=== PATIENT | female | born 1990 | race Native Hawaiian/Other Pacific Islander ===

== ENCOUNTER 2022-08-31 11:50 | Emergency (ER) | payer BC, OTHER | END 2022-08-31 13:01 | disposition left against medical advice (07) | LOC: ED 11:50 | DX: Z53.21 Procedure and treatment not carried out due to patient leaving prior to being seen by health care provider (principal) | CPT/HCPCS: 99281 ==

== ENCOUNTER 2022-12-26 10:52 | Emergency (ER) | payer OTHER ==
--- NOTE | 2022-12-26 11:51 | ERPHSYRPT ---
- History of Present Illness Time Seen by Provider: 12/26/22 11:32 Source: patient Exam Limitations: no limitations Patient Subjective Stated Complaint: pt here because she is worried about her test results, she states 3 weeks ago she was seen and states her wbc count was elevated and has a fatty liver, she has an apt on wednesday , she co abd pain to left side of, able to eat and drink,denies problems with b/b Triage Nursing Assessment: pt alert, resp easy, walked in, face mask in place, emtional at times Physician History: pt here because she is worried about her test results, she states 3 weeks ago she was seen and states her wbc count was elevated and has a fatty liver, she has an apt on wednesday , she co abd pain to left side of, able to eat and drink,denies problems with b/b Patient is 32-year-old female came to the emergency room with complaining of some epigastric pain which has been going on for last 4 to 6 weeks. Patient has underwent multiple blood test through multiple ER visit as well as multiple office visits. Patient and her came to the ER to find out the answers and find out what was her white blood cell count. She just got 1 complete blood count yesterday in doctor's office but she could not get the results. Allergies/Adverse Reactions: No Known Drug Allergies Allergy (Unverified 12/26/22 11:22) Home Medications: Dextroamphetamine/Amphetamine [Adderall 7.5 mg Tablet] 7.5 mg PO DAILY 12/26/22 [History] Hydrocodone/Acetaminophen [Hydrocodone-Acetamin 7.5-325] 1 each PO DAILY 12/26/22 [History] Hx Tetanus, Diphtheria Vaccination/Date Given: No Hx Influenza Vaccination/Date Given: No Hx Pneumococcal Vaccination/Date Given: No Immunizations Up to Date: Yes Travel Risk - International Travel Have you traveled outside of the country in past 3 weeks: No - Coronavirus Screening Are you exhibiting any of the following symptoms?: No Close contact with a COVID-19 positive Pt in past 14-21 Days: No - Vaccine Status Have you recieved a Covid-19 vaccination: Yes 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[employer] - Vaccination Dates Date of 2cond Vaccination (if applicable): 2020 - Review of Systems Constitutional: No Symptoms Eyes: No Symptoms Ears, Nose, & Throat: No Symptoms Respiratory: No Symptoms Cardiac: No Symptoms Abdominal/Gastrointestinal: Abdominal Pain (epigastric) Genitourinary Symptoms: No Symptoms Musculoskeletal: No Symptoms - Social History Smoking Status: Current every day smoker Exposure to second hand smoke: Yes Patient Lives Alone: No Significant Family History: heart disease, diabetes - Female History Hx Last Menstrual Period: november Hx Now: No - Nursing Vital Signs Nursing Vital Signs: Pain Scale Pain Intensity 7 - Physical Exam General Appearance: no apparent distress, alert Eye Exam: PERRL/EOMI, eyes nml inspection Ears, Nose, Throat Exam: normal ENT inspection, TMs normal, pharynx normal, moist mucous membranes Neck Exam: normal inspection, non-tender, supple, full range of motion Respiratory Exam: normal breath sounds, lungs clear, No respiratory distress Cardiovascular Exam: regular rate/rhythm, normal heart sounds, normal peripheral pulses Gastrointestinal/Abdomen Exam: soft, normal bowel sounds, No tenderness, No mass Back Exam: normal inspection, normal range of motion, No CVA tenderness, No vertebral tenderness Extremity Exam: normal inspection, normal range of motion, pelvis stable Neurologic Exam: alert, oriented x 3, cooperative, normal mood/affect, nml cerebellar function, nml station & gait, sensation nml, No motor deficits Skin Exam: normal color, warm, dry, No rash Lymphatic Exam: No adenopathy - Course Nursing assessment & vital signs reviewed: Yes - Progress Progress: unchanged Progress Note: 12/26/22 11:54 I explained at length patient's concern, educated her about elevated white blood cell count, advised her to follow-up with her primary care physician for further intervention if necessary. Patient and her significant other understood. They are all questions were answered. Counseled pt/family regarding: diagnosis, need for follow-up Medical Desision Making - Discussion of managment Reviewed:: Test results, Need for additional workup Agreed on:: Treatment plan, need for follow-up - Departure Departure Disposition: Home Clinical Impression: Epigastric abdominal pain Leukocytosis (leucocytosis) Qualifiers: Leukocytosis type: other Qualified Code(s): D72.828 - Other elevated white blood cell count Condition: Stable Critical Care Time: No Referrals: AGUEDA SAHU MD [Emergency Provider] - Follow up/PCP as directed Additional Instructions: Discharge/Care Plan EITAN SIMS was seen on 12/26/22 in the Emergency Room. The patient was counseled regarding Diagnosis,Lab results, Imaging studies, need for follow up and when to return to the Emergency Room. Prescriptions given: Discharge Note I have spoken with the patient and/or caregivers. I have explained the patient's condition, diagnosis and treatment plan based on the information available to me at this time. I have answered the patient's and/or caregiver's questions and addressed any concerns. The patient and/or caregivers have as good understanding of the patient's diagnosis, condition and treatment plan as can be expected at this point. The vital signs have been stable. The patient's condition is stable and appropriate for discharge from the emergency department. The patient will pursue further outpatient evaluation with the primary care rosanne santacruz or other designated or consulting physician as outlined in the discharge instructions. The patient and/or caregivers are agreeable to this plan of care and follow-up instructions have been explained in detail. The patient and/or caregivers have received these instruction. The patient/and or caregivers are aware that any significant change in condition or worsening of symptoms should prompt an immediate return to this or the closest emergency department or call 911. SOLISEITAN LINDSAY was seen on 12/26/22 n the Emergency Room. At that time you were treated for an emergent condition, during your visit Laboratory, Radiology and/or other procedures may have been ordered. It is very important that you follow-up with your Primary Care Physician AMBER HAMPTON within the next 24-48 hours to review your Emergency Room visit and the final results of testing that was ordered. Some test results such as Urine Cultures, Blood Cultures, and other cultures if ordered will not be finalized for 24-48 hours. If you do not have a Primary Care Provider please call the medical records department at [phone] ext [phone] to obtain a copy of your results or you may sign into our patient portal to obtain these results by visiting us @ [email or web address] and completing the following steps: 1. Click on the Patient Portal link 2. Click the Patient Self Enrollment Link to complete the enrollment form and entering your 3. Once the enrollment form is completed you will receive an email with a temporary ID and password at the email address you provided. 4. Next choose a user name and password. Your user name must be at least 4 characters long and your password must be at least 4 characters long. 5. Choose a security question from the list and provide your answer to the question. If you already have signed into the Health Portal you may access your Health Care Information 22/03 by the following steps: 1. Login to our website @ [email or web address] 2. Enter your original user name and password. FAQS The [facility] Health Portal is an online tool that contains your Lab Results, Radiology Reports, Visit History, Discharge Instructions and Health Summary Lab and Radiology Results will not be available for 72 hours on the portal. The Portal is a secure site, passwords are encryted and URLs are re-written so they cannot be copied and pasted. You and authorized family members are the only ones who can access your Portal. Also there is a timeout feature that protects your information if you leave the Portal page open. If you have technical difficulty please use the Contact Us link on the page this will allow you to submit any questions you have regarding the Portal or you may contact the Medical Record Department at [phone] ext [phone].
[2022-12-26 11:59] VITALS: BP 138/78; PULSE 88; O2SAT 98
== END 2022-12-26 12:06 | disposition home or self-care (01) ==
LOC: ED 10:52
DX: R10.13 Epigastric pain (principal); D72.828 Other elevated white blood cell count; Z79.891 Long term (current) use of opiate analgesic; Z79.899 Other long term (current) drug therapy; Z72.0 Tobacco use
CPT/HCPCS: 99281

== ENCOUNTER 2023-04-06 22:44 | Emergency (ER) | payer BC, OTHER ==
[2023-04-06 23:00] VITALS: TEMP 99.7
[2023-04-06] MEDS ORDERED: Sodium Chloride 0.9% 1000 ML 1,000 ML ONE (23:15)
[2023-04-06] MEDS: Sodium Chloride 0.9% 1000 ML 1,000 ML IV STA (23:16)
[2023-04-06 23:25] LABS: HCG URINE TEST NEGATIVE (NEGATIVE)
[2023-04-06 23:36] LABS: Amphetamine,Urine NEGATIVE (NEGATIVE); Barbiturate,Urine NEGATIVE (NEGATIVE); Benzodiazepine,Urine NEGATIVE (NEGATIVE); Cocaine,Urine NEGATIVE (NEGATIVE); Methadone,Urine NEGATIVE (NEGATIVE); Opiate,Urine POSITIVE (NEGATIVE); PCP,Urine NEGATIVE (NEGATIVE); THC,Urine POSITIVE (NEGATIVE)
[2023-04-07 00:04] LABS: INFLUENZA A NEGATIVE (NEGATIVE); INFLUENZA B NEGATIVE (NEGATIVE); RESPIRATORY SYNCTIAL VIRUS NEGATIVE (NEGATIVE)
[2023-04-07 00:14] LABS: SARS-CoV-2 Xpert Express POSITIVE (NEGATIVE)
[2023-04-07 00:23] VITALS: O2SAT 98
--- NOTE | 2023-04-07 00:35 | ERPHSYRPT ---
- History of Present Illness Time Seen by Provider: 04/06/23 23:00 Source: patient Exam Limitations: no limitations Patient Subjective Stated Complaint: cough, intermittent fever, headache, body aches since wednesday Triage Nursing Assessment: pt ambulatory to bed by self, pt alert and oriented x3, skin pwd, pt c/o intermittent fever, nonproductive cough, body aches and intermittent headache since wednesday, pt afebrile currently, hx of asthma as a child Physician History: Patient 33-year-old female presents to the emergency department for evaluation of viral-like symptoms. Patient has been experiencing cough congestion body aches headache and subjective fever. Symptoms have been ongoing for approximately 3 days. No nausea or vomiting. No diarrhea. Patient currently afebrile. Symptoms are mild to moderate in intensity. No specific worsening or improving factors. Patient otherwise feels well. Patient denies sick contacts. Portions of this note were created with voice recognition technology. There may be grammatical, spelling, punctuation or sound alike errors Timing/Duration: day(s) (3 days), worse Modifying Factors: Improves With: nothing Associated Symptoms: denies symptoms Allergies/Adverse Reactions: No Known Drug Allergies Allergy (Verified 04/06/23 22:55) Home Medications: Dextroamphetamine/Amphetamine [Adderall 7.5 mg Tablet] 7.5 mg PO DAILY 12/26/22 [History] Hydrocodone/Acetaminophen [Hydrocodone-Acetamin 7.5-325] 1 each PO DAILY 12/26/22 [History] Hx Tetanus, Diphtheria Vaccination/Date Given: Yes Hx Influenza Vaccination/Date Given: (unk) Hx Pneumococcal Vaccination/Date Given: No Immunizations Up to Date: Yes Travel Risk - International Travel Have you traveled outside of the country in past 3 weeks: No - Coronavirus Screening Are you exhibiting any of the following symptoms?: No Close contact with a COVID-19 positive Pt in past 14-21 Days: No - Vaccine Status Have you recieved a Covid-19 vaccination: Yes 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 Dates Date of 2cond Vaccination (if applicable): n/a - Review of Systems Constitutional: No Symptoms, No Fever, No Chills Eyes: No Symptoms Ears, Nose, & Throat: No Symptoms Respiratory: No Symptoms, No Cough, No Dyspnea Cardiac: No Symptoms, No Chest Pain, No Edema, No Syncope Abdominal/Gastrointestinal: No Symptoms, No Abdominal Pain, No Nausea, No Vomiting, No Diarrhea Genitourinary Symptoms: No Symptoms, No Dysuria Musculoskeletal: No Symptoms, No Back Pain, No Neck Pain Skin: No Symptoms, No Rash Neurological: No Symptoms, No Dizziness, No Focal Weakness, No Sensory Changes Psychological: No Symptoms Endocrine: No Symptoms Hematologic/Lymphatic: No Symptoms Immunological/Allergic: No Symptoms All Other Systems: Reviewed and Negative - Past Medical History Pertinent Past Medical History: Yes Respiratory History: Asthma, Pneumonia Psycho-Social History: Attention Deficit Disorder Other Medical History: fatty liver - Past Surgical History Past Surgical History: No Female Surgical History: Section - Social History Smoking Status: Current every day smoker Exposure to second hand smoke: No Drug Use: none Patient Lives Alone: No Significant Family History: heart disease, diabetes - Female History Hx Last Menstrual Period: 03/08/23 Hx Now: No - Nursing Vital Signs Nursing Vital Signs: Initial Vital Signs Temperature 99.7 F 04/06/23 22:58 Pulse Rate 90 04/06/23 22:58 Respiratory Rate 19 04/06/23 22:58 Blood Pressure 152/107 04/06/23 22:58 O2 Sat by Pulse Oximetry 98 04/06/23 22:58 Pain Scale Pain Intensity 0 - Physical Exam General Appearance: no apparent distress, alert Eye Exam: PERRL/EOMI, eyes nml inspection Ears, Nose, Throat Exam: normal ENT inspection, TMs normal, pharynx normal, moist mucous membranes Neck Exam: normal inspection, non-tender, supple, full range of motion Respiratory Exam: normal breath sounds, lungs clear, No respiratory distress Cardiovascular Exam: regular rate/rhythm, normal heart sounds, normal peripheral pulses Gastrointestinal/Abdomen Exam: soft, normal bowel sounds, No tenderness, No mass Back Exam: normal inspection, normal range of motion, No CVA tenderness, No vertebral tenderness Extremity Exam: normal inspection, normal range of motion, pelvis stable Neurologic Exam: alert, oriented x 3, cooperative, normal mood/affect, nml cerebellar function, nml station & gait, sensation nml, No motor deficits Skin Exam: normal color, warm, dry, No rash Lymphatic Exam: No adenopathy SpO2 Interpretation: normal SpO2: 98 O2 Delivery: Room Air - Course Nursing assessment & vital signs reviewed: Yes EKG Interpreted by Me: RATE (86), Sinus Rhythm, NORMAL AXIS, NORMAL INTERVALS - Radiology Exams Chest X-ray Interpretation: Interpreted by me (Normal chest x-ray), Teleradiologist Report Ordered Tests: Active Orders 24 hr Category Date Time Status CHEST 1 VIEW (PORTABLE) Stat Exams 04/07/23 00:25 Taken HCG QUALITATIVE, URINE Stat Lab 04/06/23 23:15 Completed UA W/RFX UR CULTURE Stat Lab 04/07/23 01:11 Completed Urine Triage Profile Stat Lab 04/06/23 23:15 Completed Medication Summary Discontinued Medications Generic Name Dose Route Start Last Admin Trade Name Fredasha PRN Reason Stop Dose Admin Dexamethasone Sodium Phosphate 6 mg 04/07/23 01:07 04/07/23 01:10 Dexamethasone Sod Phosphate 10 Mg/Ml IV 04/07/23 01:08 6 mg STAT ONE Administration Dexamethasone Sodium Phosphate Confirm 04/07/23 01:09 Dexamethasone Sod Phosphate 10 Mg/Ml Administered 04/07/23 01:10 Dose 10 mg .ROUTE .STK-MED ONE Sodium Chloride 1,000 mls @ 999 mls/hr 04/06/23 23:11 04/07/23 01:08 Sodium Chloride 0.9% 1000 Ml IV 04/07/23 00:11 Infused .Q1H1M STA Infusion Sodium Chloride Confirm 04/06/23 23:15 Sodium Chloride 0.9% 1000 Ml Administered 04/06/23 23:16 Dose 1,000 mls @ ud .ROUTE .STK-MED ONE Lab/Rad Data: Laboratory Results 04/07/23 04/06/23 04/06/23 Range/Units 01:11 23:25 23:15 Urine Color Yellow (Yellow) Urine Appearance Clear (Clear) Urine pH 6.5 (4.6-8.0) Ur Specific [place] 1.025 (1.005-1.030) Urine Protein Negative (Negative) Urine Glucose (UA) Negative (Negative) mg/dL Urine Ketones Negative (Negative) Urine Blood Negative (Negative) Urine Nitrite Negative (Negative) Urine Bilirubin Negative (Negative) Urine Urobilinogen 1.0 A (0.2) mg/dL Ur Leukocyte Esterase Negative (Negative) U Hyaline Cast (Auto) NONE SEEN (0-2) /LPF Urine Microscopic RBC 0-2 (0-5) /HPF Urine Microscopic WBC 0-2 (0-5) /HPF Ur Epithelial Cells Few (None Seen) /HPF Urine Bacteria Rare A (None Seen) /HPF Urine Culture Reflexed NO (NO) Urine HCG, Qual NEGATIVE (NEGATIVE) Urine Opiates Level (NEGATIVE) Ur Methadone (NEGATIVE) Urine Barbiturates (NEGATIVE) Ur Phencyclidine (PCP) (NEGATIVE) Urine Amphetamine (NEGATIVE) U Benzodiazepine Level (NEGATIVE) Urine Cocaine (NEGATIVE) Urine Marijuana (THC) (NEGATIVE) Influenza Type A Ag NEGATIVE (NEGATIVE) Influenza Type B Ag NEGATIVE (NEGATIVE) RSV (PCR) NEGATIVE (NEGATIVE) SARS-CoV-2 (PCR) POSITIVE A (NEGATIVE) 04/06/23 Range/Units 23:15 Urine Color (Yellow) Urine Appearance (Clear) Urine pH (4.6-8.0) Ur Specific [place] (1.005-1.030) Urine Protein (Negative) Urine Glucose (UA) (Negative) mg/dL Urine Ketones (Negative) Urine Blood (Negative) Urine Nitrite (Negative) Urine Bilirubin (Negative) Urine Urobilinogen (0.2) mg/dL Ur Leukocyte Esterase (Negative) U Hyaline Cast (Auto) (0-2) /LPF Urine Microscopic RBC (0-5) /HPF Urine Microscopic WBC (0-5) /HPF Ur Epithelial Cells (None Seen) /HPF Urine Bacteria (None Seen) /HPF Urine Culture Reflexed (NO) Urine HCG, Qual (NEGATIVE) Urine Opiates Level POSITIVE (NEGATIVE) Ur Methadone NEGATIVE (NEGATIVE) Urine Barbiturates NEGATIVE (NEGATIVE) Ur Phencyclidine (PCP) NEGATIVE (NEGATIVE) Urine Amphetamine NEGATIVE (NEGATIVE) U Benzodiazepine Level NEGATIVE (NEGATIVE) Urine Cocaine NEGATIVE (NEGATIVE) Urine Marijuana (THC) POSITIVE (NEGATIVE) Influenza Type A Ag (NEGATIVE) Influenza Type B Ag (NEGATIVE) RSV (PCR) (NEGATIVE) SARS-CoV-2 (PCR) (NEGATIVE) - Progress Progress: improved Progress Note: Patient is a 30-year-old female presents to our ED for evaluation of feeling unwell. Patient experiencing cough congestion body aches headache. Positive subjective fevers. 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 Physical exam essentially nonremarkable. COVID test positive. Patient received a dose of Decadron. Urinalysis pending. Work note provided. Patient agrees to follow-up with her primary care doctor within 48 hours for reevaluation. Portions of this note were created with voice recognition technology. There may be grammatical, spelling, punctuation or sound alike errors Complexity of problems addressed is moderate acute complicated systemic manifestations Complexity of data reviewed and analyzed is moderate. Test ordered test reviewed and analyzed. Clinical correlation made between findings and history and physical examination. Risk of complication and or risk morbidity/mortality of patient management is moderate. Patient received IM Decadron. This is a long-acting steroid which precluded the need for a prescription. Vital stable. Time spent to discharge patient is approximately 15 minutes. Plan of care established for shared decision making. No social determinants of health presents impede follow-up. Portions of this note were created with voice recognition technology. There may be grammatical, spelling, punctuation or sound alike errors 04/07/23 01:12 Resulted within normal limits. No UTI 04/07/23 01:40 Counseled pt/family regarding: lab results, diagnosis, need for follow-up - Departure Departure Disposition: Home Clinical Impression: COVID-19, Viral syndrome Condition: Stable Critical Care Time: No Referrals: AMBER HAMPTON [Primary Care Provider] - Follow up/PCP as directed Additional Instructions: Discharge/Care Plan EITAN SIMS was seen on 04/07/23 in the Emergency Room. The patient was counseled regarding Diagnosis,Lab results, Imaging studies, need for follow up and when to return to the Emergency Room. Prescriptions given: Discharge Note I have spoken with the patient and/or caregivers. I have explained the patient's condition, diagnosis and treatment plan based on the information available to me at this time. I have answered the patient's and/or caregiver's questions and addressed any concerns. The patient and/or caregivers have as good understanding of the patient's diagnosis, condition and treatment plan as can be expected at this point. The vital signs have been stable. The patient's condition is stable and appropriate for discharge from the emergency department. The patient will pursue further outpatient evaluation with the primary care physician or other designated or consulting physician as outlined in the discharge instructions. The patient and/or caregivers are agreeable to this plan of care and follow-up instructions have been explained in detail. The patient and/or caregivers have received these instruction. The patient/and or caregivers are aware that any significant change in condition or worsening of symptoms should prompt an immediate return to this or the closest emergency department or call 911. Forms: Work/School Release Form
[2023-04-07] MEDS ORDERED: DECADRON 10MG INJ. ONE (01:09)
[2023-04-07] MEDS: DECADRON 10MG INJ. IV ONE (01:10)
[2023-04-07 01:24] LABS: Appearance Clear (Clear); Bacteria Rare /HPF (None Seen); Bilirubin Negative (Negative); Blood Negative (Negative); Epithelial Cells Few /HPF (None Seen); Glucose, Urine Negative (Negative); Hyaline Casts NONE SEEN /LPF (0-2); Ketones Negative (Negative); Leukocyte Esterase Negative (Negative); Nitrite Negative (Negative); Ph 6.5 (4.6-8.0); Protein,Urine Dip Negative (Negative); RBC 0-2 /HPF (0-5); Specific Gravity 1.025 (1.005-1.030); WBC 0-2 /HPF (0-5)
[2023-04-07 01:25] LABS: ADD URINE CULTURE? NO (NO)
[2023-04-07 02:17] VITALS: BP 128/79; PULSE 87; RESP 17
--- NOTE | 2023-04-07 08:55 | XRAY ---
Indication: Short of breath. Positive Covid 19. Comparison: July 23, 2009 Portable chest demonstrates normal heart, lungs, and bony thorax.
== END 2023-04-07 02:13 | disposition home or self-care (01) ==
LOC: ED 22:44
DX: U07.1 COVID-19 (principal); B34.9 Viral infection, unspecified; R05.1 Acute cough; M79.10 Myalgia, unspecified site; R51.9 Headache, unspecified; Z79.891 Long term (current) use of opiate analgesic; Z79.899 Other long term (current) drug therapy; Z72.0 Tobacco use
CPT/HCPCS: 0241U; 71045; 80307; 81001; 81025; 96374; 99284; J1100